=== PATIENT | female | born 2000 | race Hispanic/Latino ===

== ENCOUNTER 2018-06-29 20:07 | Emergency (ER) | payer SELFPAY ==
[~2018-06-29] VITALS: Ht 162.6 cm; Wt 68.5 kg
[2018-06-29] MEDS ORDERED: PANTOPRAZOLE 40 MG 10ML VIAL IV ONE (21:00)
== END 2018-06-29 21:30 | disposition home or self-care (01) ==
LOC: FSED 20:07
DX: K29.01 Acute gastritis with bleeding (principal); K92.1 Melena; R10.12 Left upper quadrant pain
CPT/HCPCS: 99283; C9113